=== PATIENT | female | born 1975 | race Caucasian/White ===

== ENCOUNTER 2021-06-05 05:03 | Emergency (ER) | payer MEDICAID ==
[~2021-06-05] VITALS: Ht 175.3 cm; Wt 74.1 kg
[2021-06-05 06:12] LABS: BASOPHILS % (AUTO) 0.8 % (0-1); EOSINOPHILS # (AUTO) 0.3 X10'3 (0-0.9); EOSINOPHILS % (AUTO) 6.1 % (0-6); HEMATOCRIT 35.1 % (35.0-45.0); HEMOGLOBIN 11.9 g/dl (12.0-16.0); LYMPHOCYTES # (AUTO) 1.4 X10'3 (1.1-4.8); MEAN CORPUSCULAR HEMOGLOBIN 29.6 PG (27.0-31.0); MEAN PLATELET VOLUME 8.4 FL (7.4-10.4); MONOCYTES # (AUTO) 0.5 X10'3 (0-0.9); MONOCYTES % (AUTO) 9.1 % (2-12); PLATELET COUNT 227 X10'3 (140-440); RED BLOOD COUNT 4.03 X10'6 (4.20-5.60); RED CELL DISTRIBUTION WIDTH 15.6 % (11.5-14.5); WHITE BLOOD COUNT 5.2 X10'3 (4.5-11.0)
[2021-06-05] MEDS ORDERED: acetaminophen 325mg tablet PO ONE (06:20)
[2021-06-05 06:43] LABS: ALANINE AMINOTRANSFERASE 21 U/L (12-78); ALBUMIN 3.1 G/DL (3.4-5.0); ALKALINE PHOSPHATASE 47 IU/L (46-116); ANION GAP 9 (8-16); ASPARTATE AMINO TRANSFERASE 13 U/L (10-37); BILIRUBIN,TOTAL 0.4 MG/DL (0.1-1.0); BLOOD UREA NITROGEN 13 MG/DL (7-18); CALCIUM 8.5 MG/DL (8.5-10.1); CHLORIDE 105 MMOL/L (99-107); CREATININE 0.65 MG/DL (0.40-0.90); GLUCOSE 99 MG/DL (70-104); LIPASE 63 U/L (73-393); SODIUM 139 MMOL/L (135-145); TOTAL CARBON DIOXIDE 24.7 MMOL/L (24-32); TOTAL PROTEIN 6.2 G/DL (6.4-8.2); eGFR > 90 ML/MIN
[2021-06-05 08:34] LABS: CLARITY,URINE SLIGHTLY CLOUDY (Clear); COLOR,URINE YELLOW (Yellow); GLUCOSE, URINE NEGATIVE (Neg); KETONES,URINE NEGATIVE (Neg); LEUKOCYTE ESTERASE ,URINE NEGATIVE (Neg); NITRITES, URINE NEGATIVE (Neg); OCCULT BLOOD,URINE NEGATIVE (Neg); PH,URINE 6.5 (4.8-8.0); PROTEIN,URINE NEGATIVE (Neg); UROBILINOGEN,URINE 0.2 E.U/dL (0.2-1.0)
[2021-06-05 08:36] LABS: URINE HCG NEGATIVE (NEG)
[2021-06-05 08:37] LABS: UA COLLECTION TYPE CLN CATCH MIDSTREAM
[2021-06-05 08:50] LABS: MUCUS STRANDS FEW /LPF (Neg); SQUAMOUS EPITHELIAL CELL,UR FEW /LPF (FEW)
[2021-06-05 08:51] LABS: BACTERIA,URINE FEW /HPF (Neg); RBC,URINE 0-2 /HPF (0-2); WBC,URINE 0-4 /HPF (0-4)
[2021-06-05 09:16] VITALS: BP 111/59
== END 2021-06-05 09:19 | disposition home or self-care (01) ==
LOC: ER 05:04
DX: N83.202 Unspecified ovarian cyst, left side (principal); Z87.891 Personal history of nicotine dependence; Z72.89 Other problems related to lifestyle; Z90.710 Acquired absence of both cervix and uterus
CPT/HCPCS: 36415; 76830; 76856; 80053; 81001; 81025; 83690; 85025; 93976; 99284

== ENCOUNTER 2022-02-20 16:45 | Emergency (ER) | payer MEDICAID ==
[~2022-02-20] VITALS: Ht 175.3 cm; Wt 69.5 kg
[2022-02-20 16:47] VITALS: BP 127/45
== END 2022-02-20 20:07 | disposition left against medical advice (07) ==
LOC: ER 16:46
DX: M54.2 Cervicalgia (principal); Z53.21 Procedure and treatment not carried out due to patient leaving prior to being seen by health care provider

== ENCOUNTER 2022-03-01 05:28 | Inpatient (IN) | payer MEDICAID ==
[2022-02-26 11:09] LABS: BASOPHILS % (AUTO) 0.8 % (0-1); EOSINOPHILS # (AUTO) 0.1 X10'3 (0-0.9); EOSINOPHILS % (AUTO) 2.6 % (0-6); LYMPHOCYTES # (AUTO) 1.4 X10'3 (1.1-4.8); LYMPHOCYTES % (AUTO) 25.9 % (21-51); MEAN CORPUSCULAR HEMOGLOBIN 31.5 PG (27.0-31.0); MEAN CORPUSCULAR HGB CONC 34.6 g/dL (33.0-36.5); MEAN PLATELET VOLUME 8.2 FL (7.4-10.4); MONOCYTES # (AUTO) 0.3 X10'3 (0-0.9); MONOCYTES % (AUTO) 5.9 % (2-12); NEUTROPHILS # (AUTO) 3.5 X10'3 (1.8-7.7); NEUTROPHILS % (AUTO) 64.8 % (42-75); PRE OP HEMATOCRIT 37.8 % (35.0-45.0); PRE OP HEMOGLOBIN 13.1 g/dL (12.0-16.0); PRE OP PLATELET COUNT 248 X10'3 (140-440); RED BLOOD COUNT 4.15 X10'6 (4.20-5.60); RED CELL DISTRIBUTION WIDTH 12.7 % (11.5-14.5)
[2022-02-26 11:20] LABS: ALBUMIN/GLOBULIN RATIO 0.8 (1.1-1.5); ALKALINE PHOSPHATASE 56 IU/L (46-116); BLOOD UREA NITROGEN 11 MG/DL (7-18); BUN/CREATININE RATIO 17.2 (6.6-38.0); CALCIUM 8.9 MG/DL (8.5-10.1); CHLORIDE 103 MMOL/L (99-107); CREATININE 0.64 MG/DL (0.40-0.90); PRE OP ALT 19 U/L (30-65); PRE OP ANION GAP 8 (8-16); PRE OP AST 19 U/L (10-37); PRE OP BILIRUB, TOTAL 0.2 MG/DL (0.0-1.0); PRE OP GLUCOSE 108 MG/DL (70-104); PRE OP POTASSIUM 3.5 MMOL/L (3.4-5.1); PRE OP SODIUM 140 MMOL/L (135-145); TOTAL PROTEIN 6.7 G/DL (6.4-8.2); eGFR > 90 ML/MIN
[2022-02-26 11:21] LABS: HCG SERUM QL NEGATIVE
[~2022-03-01] VITALS: Ht 175.3 cm; Wt 70.0 kg
[2022-03-01] VITALS (25 sets, daily range): BP systolic 111–143; BP diastolic 53–86
[~2022-03-01 05:28] MED LIST: ASHW300C PEG; BUPR1FIL20 SL; CALCIUM PO; CYAN50003 PO; ERGO400C PO; MAGN400C PO; MULT-1085 PO; SENN-173 PO; ZINC PO
[2022-03-01] MEDS ORDERED: phenazopyridine 100mg tablet PO ONE (05:30)
[2022-03-01] MEDS ORDERED: gabapentin 300mg capsule PO ONE (05:30)
[2022-03-01] MEDS ORDERED: ceFOXitin 2GM-NS 100mL ADDvant 100 ML IV ONE (05:30)
[2022-03-01] MEDS ORDERED: acetaminophen 325mg tablet PO ONE (05:30)
[2022-03-01] MEDS ORDERED: famotidine 20mg tablet PO ONE (05:30)
[2022-03-01] MEDS ORDERED: celeCOXIB 100mg capsule PO ONE (05:30)
--- NOTE | 2022-03-01 06:19 | NUR ---
TRIED TO SCAN FAMOTIDINE FOR THIS PATIENT. THE MEDICATION WON'T SCAN. RETURNED IT AND GOT ANOTHER ONE OUT. IT WON'T SCAN EITHER. THE ERROR READS "UNKNOWN [facility] NUMBER". WILL MANUALLY SCAN. CHECKED THE MEDICATION : FAMOTIDINE, 20MG, EX DATE 11/01
[2022-03-01] MEDS: ringers solution, lacted 1,000 ML IV SCH ×4 (06:23→19:35)
[2022-03-01] MEDS ORDERED: clindamycin phosphate 40gm vag cream ONE (06:50)
[2022-03-01] MEDS ORDERED: LIDOcaine 1% 30ml preserv. free vial ONE (06:50)
[2022-03-01] MEDS ORDERED: epiNEPHrine 1 mg/ml inj ONE (06:51)
[2022-03-01] MEDS ORDERED: ceFAZolin 1000mg inj ONE (06:51)
[2022-03-01] MEDS ORDERED: BUPIVAcaine 0.5% inj/PF 30 ML ONE (06:51)
[2022-03-01] MEDS ORDERED: midazolam 1 mg/ML 2ml injection ONE (07:12)
[2022-03-01] MEDS ORDERED: fentaNYL /PF 50mcg/ml 5ml ampule ONE (07:12)
[2022-03-01] MEDS ORDERED: LIDOcaine 2% (20mg/ml) 5ml vial ONE (07:15)
[2022-03-01] MEDS ORDERED: dexamethasone sod phosphate 4mg/ml inj. ONE (07:15)
[2022-03-01] MEDS ORDERED: propofol inj 20 ML IV ONE (07:15)
[2022-03-01] MEDS ORDERED: neostigmine methylsulfate 1 MG/ML 10ml vial ONE (07:16)
[2022-03-01] MEDS ORDERED: ondansetron/PF 4mg/2ml inj ONE (07:16)
[2022-03-01] MEDS ORDERED: rocuronium 10mg/ml inj IV ONE ×3 (07:16→10:38)
[2022-03-01] MEDS ORDERED: glycopyrrolate 0.2mg/ml inj ONE (07:16)
[2022-03-01] MEDS ORDERED: ringers solution, lacted 1,000 ML IV SCH (07:25)
[2022-03-01] MEDS ORDERED: fentaNYL/PF 50MCG/1 ML 2ML syringe IV PRN ×2 (07:25)
[2022-03-01] MEDS ORDERED: hydrALAZINE 20mg/ml inj. IV PRN (07:25)
[2022-03-01] MEDS ORDERED: labetalol 20mg/4ml (5mg/ml) syringe IV PRN (07:25)
[2022-03-01] MEDS ORDERED: morphine 2 MG/ML inj. syringe IV PRN (07:25)
[2022-03-01] MEDS ORDERED: ondansetron/PF 4mg/2ml inj IV PRN ×2 (07:25→11:35)
[2022-03-01] MEDS ORDERED: morphine 4 MG/ML inj SYRINge IV PRN (07:25)
[2022-03-01] MEDS ORDERED: sevoflurane 250ml liquid IH ONE (07:41)
[2022-03-01] MEDS ORDERED: ATROPINE SULFATE 0.4 MG/ML injection (OR only) ONE (08:34)
[2022-03-01] MEDS ORDERED: epiNEPHrine 1 mg/ml inj SQ ONE (08:43)
[2022-03-01] MEDS ORDERED: LIDOcaine 1% 30ml preserv. free vial IJ ONE (08:45)
[2022-03-01] MEDS ORDERED: ceFAZolin 1000mg inj IR ONE (08:50)
[2022-03-01] MEDS ORDERED: BUPIVAcaine 0.5% inj/PF 30 ml vial IJ ONE (08:50)
[2022-03-01] MEDS ORDERED: labetalol 20mg/4ml (5mg/ml) syringe IV ONE (10:17)
[2022-03-01] MEDS ORDERED: FENTANYL CITRATE/PF 50 MCG/1 ML VIAL ONE (10:20)
[2022-03-01] MEDS ORDERED: acetaminophen 1,000mg/100ml IV 100 ML IV ONE (11:04)
[2022-03-01] MEDS ORDERED: ketorolac trometh. 30mg/ml inj. ONE (11:04)
[2022-03-01] MEDS ORDERED: normal saline 500ML IV soln IV PRN (11:35)
[2022-03-01] MEDS ORDERED: gabapentin 400mg capsule PO PRN (11:35)
[2022-03-01] MEDS ORDERED: mag hydrox/Alum hydrox/simeth 30ml oral suspension PO PRN (11:35)
[2022-03-01] MEDS ORDERED: temazepam 15mg capsule PO PRN (11:35)
[2022-03-01] MEDS ORDERED: diphenhydrAMINE 50 mg/ml inj IV PRN (11:35)
[2022-03-01] MEDS ORDERED: LORazepam 2 mg/ml vial IV PRN (11:35)
[2022-03-01] MEDS ORDERED: magnesium hydroxide 30ml (MOM) UD suspension PO PRN (11:35)
--- NOTE | 2022-03-01 11:43 | NUR ---
RECEIVED PT FROM THE OPERATING ROOM IN STABLE CONDITION, REPORT FROM DR GARDINER. 3 PUNCTURE SITES ON ABDOMEN, CLOSED WITH GLUE, NO DRESSINGS. TEMP PROBE PLATT CATHETER IN PLACE WITH GOOD AMOUNT OF ORANGE TINGED URINE. PT ON O2 MASK AT 10 LITERS, IV SITE CLEAR, IV FLUIDS RUNNING FREELY
[2022-03-01] MEDS ORDERED: sennosides 8.6mg tablet PO PRN (12:35)
[2022-03-01] MEDS: simethicone 80mg chew tab PO SCH ×2 (13:00→18:00)
--- NOTE | 2022-03-01 13:17 | NUR ---
Patient in room PAS IN 900. I have received report from Meli GONZALEZtongue stitcher and had the opportunity to ask questions and assume patient care.
--- NOTE | 2022-03-01 13:40 | NUR ---
REPORT CALLED TO RAY GONZALEZ, PT TRANSFERRED IN STABLE CONDITION TO HER ROOM BY TRANSPORTER AND HARLEY GONZALEZ. PLATT EMPTIED. ALL BELONGINGS WITH PT
[2022-03-01] MEDS: acetaminophen 325mg tablet PO SCH ×2 (16:37→21:36)
[2022-03-01] MEDS: ketorolac trometh. 30mg/ml inj. IV SCH ×2 (16:38→20:00)
[2022-03-01] MEDS ORDERED: HYDROmorphone/PF 0.2 MG/ML SYRINGE IV PRN (16:40)
[2022-03-01] MEDS ORDERED: oxyCODONE IR 5mg (immed. release) tablet PO PRN (16:40)
--- NOTE | 2022-03-01 18:34 | NUR ---
Patient in room [facility] 346. I have received report from RAY GONZALEZ and had the opportunity to ask questions and assume patient care.
--- NOTE | 2022-03-01 18:38 | NUR ---
Problems reprioritized. Patient report given, questions answered & plan of care reviewed with Prudence RN.
[2022-03-01] MEDS: docusate sod 100mg capsule PO SCH (21:36)
[2022-03-02] MEDS: ringers solution, lacted 1,000 ML IV SCH (01:04)
[2022-03-02 02:00] VITALS: BP 122/70
[2022-03-02] MEDS: acetaminophen 325mg tablet PO SCH ×2 (02:00→08:39)
[2022-03-02] MEDS: ketorolac trometh. 30mg/ml inj. IV SCH ×2 (02:00→08:38)
--- NOTE | 2022-03-02 05:49 | NUR ---
PACKING REMOVED PER INSTRUCTION Addendum: 03/02/22 at 0551 by Ita Ann RN Amended: Links added.
[2022-03-02 06:00] VITALS: BP 102/50
--- NOTE | 2022-03-02 06:28 | NUR ---
Problems reprioritized. Patient report given, questions answered & plan of care reviewed with CAITLYN GONZALEZ.
--- NOTE | 2022-03-02 06:47 | NUR ---
Patient in room [facility] 346. I have received report from Ita and had the opportunity to ask questions and assume patient care.
[2022-03-02 06:57] LABS: BASOPHILS % (AUTO) 0.4 % (0-1); EOSINOPHILS % (AUTO) 0.1 % (0-6); HEMATOCRIT 32.8 % (35.0-45.0); HEMOGLOBIN 11.3 g/dl (12.0-16.0); LYMPHOCYTES # (AUTO) 1.9 X10'3 (1.1-4.8); LYMPHOCYTES % (AUTO) 31.1 % (21-51); MEAN CORPUSCULAR HEMOGLOBIN 31.6 PG (27.0-31.0); MEAN CORPUSCULAR HGB CONC 34.4 g/dL (33.0-36.5); MEAN CORPUSCULAR VOLUME 91.9 FL (78-98); MEAN PLATELET VOLUME 8.2 FL (7.4-10.4); MONOCYTES # (AUTO) 0.6 X10'3 (0-0.9); MONOCYTES % (AUTO) 8.9 % (2-12); NEUTROPHILS # (AUTO) 3.7 X10'3 (1.8-7.7); NEUTROPHILS % (AUTO) 59.5 % (42-75); PLATELET COUNT 195 X10'3 (140-440); RED BLOOD COUNT 3.57 X10'6 (4.20-5.60); RED CELL DISTRIBUTION WIDTH 12.7 % (11.5-14.5); WHITE BLOOD COUNT 6.3 X10'3 (4.5-11.0)
[2022-03-02 07:18] LABS: ALBUMIN 2.5 G/DL (3.4-5.0); ANION GAP 7 (8-16); BLOOD UREA NITROGEN 11 MG/DL (7-18); BUN/CREATININE RATIO 16.7 (6.6-38.0); CALCIUM 8.4 MG/DL (8.5-10.1); CHLORIDE 104 MMOL/L (99-107); CREATININE 0.66 MG/DL (0.40-0.90); GLUCOSE 103 MG/DL (70-104); POTASSIUM 3.8 MMOL/L (3.5-5.1); SODIUM 138 MMOL/L (135-145); TOTAL CARBON DIOXIDE 27.5 MMOL/L (24-32); eGFR > 90 ML/MIN
[2022-03-02] MEDS ORDERED: buprenorphine/naloxone 8MG-2MG SUBlingual film SL SCH (08:00)
[2022-03-02] MEDS: docusate sod 100mg capsule PO SCH (08:38)
[2022-03-02] MEDS: simethicone 80mg chew tab PO SCH (09:28)
[2022-03-02 10:00] VITALS: BP 114/45
[2022-03-02] MEDS ORDERED: GABA300C PO (10:24)
== END 2022-03-02 11:45 | disposition home or self-care (01) | DRG 513 ==
LOC: PAS 05:28 → PAS IN 11:42 → SUR 3N 14:10 → OBSVTOIN 14:58
PROVIDERS: ADMIT Obstetrics & Gynecology; ATTEND Obstetrics & Gynecology
PROC: 0UT74ZZ Resection of Bilateral Fallopian Tubes, Percutaneous Endoscopic Approach (ICD-10-PCS; 2022-03-01)
PROC: 0TSD4ZZ Reposition Urethra, Percutaneous Endoscopic Approach (ICD-10-PCS; 2022-03-01)
PROC: 0USG4ZZ Reposition Vagina, Percutaneous Endoscopic Approach (ICD-10-PCS; 2022-03-01)
PROC: 0UT9FZZ Resection of Uterus, Via Natural or Artificial Opening With Percutaneous Endoscopic Assistance (ICD-10-PCS; principal; 2022-03-01 07:41)
DX: N80.03 Adenomyosis of the uterus (principal); G89.18 Other acute postprocedural pain; N39.3 Stress incontinence (female) (male); N83.201 Unspecified ovarian cyst, right side; N81.6 Rectocele; N83.202 Unspecified ovarian cyst, left side; N92.0 Excessive and frequent menstruation with regular cycle; R10.2 Pelvic and perineal pain; N81.4 Uterovaginal prolapse, unspecified
CPT/HCPCS: 36415; 80048; 80053; 82948; 84703; 85025; 86885; 86900; 86901; 87081; A4615; A4618; A7000; C1758; C1771; G0378; J0131; J0171; J0690; J0694; J1100; J1885; J2250; J2270; J2405; J2704; J2710; J3010; J3490; J7120; S0020